=== PATIENT | male | born 1975 | race Caucasian/White ===

== ENCOUNTER 2021-10-08 08:18 | Emergency (ER) | payer BC, OTHER ==
[2021-10-08 08:32] VITALS: O2SAT 100
[2021-10-08 08:49] LABS: Absolute Neutrophil Ct (ANC) 7.73 x10^3/uL (1.4-6.9); Basophil (Absolute #) 0.07 x10^3/uL (0-0.4); Eosinophil % 3.7 % (0.00-5.0); Eosinophil (Absolute #) 0.43 x10^3/uL (0-0.5); Hematocrit 44.4 % (42-50); Hemoglobin 14.8 g/dL (12.5-18.0); Lymphocyte (Absolute #) 1.75 x10^3/uL (1.0-4.6); Lymphocytes % 15.2 % (24.0-44.0); Mean Cell Volume 93.9 fL (78-100); Mean Corpuscular Hemoglobin 31.3 pg (26-32); Mean Corpuscular Hgb Concent. 33.3 g/dL (32-36); Mean Platelet Volume 9.8 fL (7.5-11.0); Monocyte (Absolute #) 1.49 x10^3/uL (0.0-1.3); Neutrophil % 67.2 % (36.0-66.0); Platelet Count 240 x10^3/uL (150-450); Red Blood Count 4.73 x10^6/uL (4.1-5.6); Red Cell Distribution Width 14.7 % (11.5-14.0); White Blood Count 11.5 x10^3/uL (4.0-10.5)
[2021-10-08] MEDS ORDERED: TORAdol 30 mg Injection ONE (08:49)
--- NOTE | 2021-10-08 08:51 | ERPHSYRPT ---
- History of Present Illness Time Seen by Provider: 10/08/21 08:30 Source: patient Exam Limitations: no limitations Patient Subjective Stated Complaint: Pt states that in May he was diagnosed with sinusitis and his face was swollen on the right side and he was prescriped zpack and claritan and it went away and then on Monday he woke up with it swelling again and called his doctor and started a zpack and claritan and psuedaphede again but woke up this morning with it swollen twice as much and has pain Triage Nursing Assessment: Pt drove self to the ER, hypertvie, rates facial pain as 5/10, no relief taking aleve, denies sinus headache, denies nasal congestion, eyes and cheeks swollen, denies tooth pain Physician History: Patient is a 45-year-old male who has a history of right maxillary sinusitis which causes right facial swelling. His last episode before this was in May. He was treated with Z-Gaston and Zyrtec. He woke yesterday with swelling of the right side of the face called his doctor was put back on Z-Gaston and Zyrtec and Sudafed woke this morning with it swollen even more. It also is more painful today. He denies any dental pain. Timing/Duration: yesterday Quality: painful Severity: moderate Location: face Possible Causes: no cause identified Modifying Factors: Improves With: antihistamine, other (Z-Gaston) Associated Symptoms: edema, nasal congestion Allergies/Adverse Reactions: No Known Drug Allergies Allergy (Verified 10/08/21 08:32) Home Medications: Aspirin EC 81 mg [Ecotrin 81 mg] 81 mg PO DAILY 10/08/21 [History] Azithromycin 250 mg [Zithromax 250 MG TABLET] 250 mg PO ZPACK 10/08/21 [History] Lansoprazole [Prevacid] 15 mg PO DAILY 10/08/21 [History] Lisinopril/Hydrochlorothiazide [Lisinopril-Hctz 10-12.5 mg Tab] 1 each PO BID 10/08/21 [History] carvediloL [Carvedilol] 25 mg PO BID 10/08/21 [History] Travel Risk - International Travel Have you traveled outside of the country in past 3 weeks: No - Coronavirus Screening Are you exhibiting any of the following symptoms?: No - Vaccine Status Have you recieved a Covid-19 vaccination: Yes [employer]: Moderna - Vaccination Dates Date of 2cond Vaccination (if applicable): 10/2020 - Review of Systems Constitutional: No Fever, No Chills Eyes: No Symptoms Ears, Nose, & Throat: No Symptoms Respiratory: No Cough, No Dyspnea Cardiac: No Chest Pain, No Edema, No Syncope Abdominal/Gastrointestinal: No Abdominal Pain, No Nausea, No Vomiting, No Diarrhea Genitourinary Symptoms: No Dysuria Musculoskeletal: No Back Pain, No Neck Pain Skin: No Rash Neurological: No Dizziness, No Focal Weakness, No Sensory Changes Psychological: No Symptoms Endocrine: No Symptoms All Other Systems: Reviewed and Negative - Past Medical History Pertinent Past Medical History: Yes Cardiac History: Hypertension, Other - Past Surgical History Past Surgical History: Yes Cardiac: Cardiac Stent Musculoskeletal: Orthopedic Surgery - Social History Smoking Status: Current every day smoker Exposure to second hand smoke: Yes Drug Use: none Patient Lives Alone: Yes Significant Family History: heart disease - Nursing Vital Signs Nursing Vital Signs: Initial Vital Signs Temperature 97.6 F 10/08/21 08:22 Pulse Rate 74 10/08/21 08:22 Blood Pressure 150/97 10/08/21 08:22 O2 Sat by Pulse Oximetry 100 10/08/21 08:22 Pain Scale Pain Intensity 5 - Physical Exam General Appearance: no apparent distress, alert Eye Exam: PERRL/EOMI, eyes nml inspection Ears, Nose, Throat Exam: normal ENT inspection, pharynx normal, moist mucous membranes, other (Right side of the face is swollen in the maxillary area going through the nose and a little beyond tenderness over the right upper face) Neck Exam: normal inspection, non-tender, supple, full range of motion Respiratory Exam: normal breath sounds, lungs clear, No respiratory distress Cardiovascular Exam: regular rate/rhythm, normal heart sounds Gastrointestinal/Abdomen Exam: soft, mass, No tenderness Back Exam: normal inspection, normal range of motion, No CVA tenderness, No vertebral tenderness Extremity Exam: normal inspection, normal range of motion Neurologic Exam: alert, oriented x 3, cooperative, normal mood/affect, sensation nml, No motor deficits Skin Exam: normal color, warm, dry SpO2: 100 - Course Nursing assessment & vital signs reviewed: Yes - CT Exams Maxillofacial Bones CT Interpretation: Other (CT of the facial bones shows bilateral sinus disease) Ordered Tests: Active Orders 24 hr Category Date Time Status IV Insertion STAT Care 10/08/21 08:35 Active FACIAL BONES WO CONTRAST [CT] Stat Exams 10/08/21 09:31 Completed CBC W DIFF Stat Lab 10/08/21 08:49 Completed Lactic Acid Stat Lab 10/08/21 08:50 Completed Medication Summary Discontinued Medications Generic Name Dose Route Start Last Admin Trade Name [place] PRN Reason Stop Dose Admin Clindamycin HCl/Dextrose 900 mg in 50 mls @ 100 mls/hr 10/08/21 08:52 10/08/21 09:54 Clindamycin-D5w 900 Mg/50 Ml IV 10/08/21 09:21 Infused STAT STA Infusion Clindamycin HCl/Dextrose Confirm 10/08/21 08:56 Clindamycin-D5w 900 Mg/50 Ml Administered 10/08/21 08:57 Dose 900 mg in 50 mls @ ud IV .STK-MED ONE Ketorolac Tromethamine Confirm 10/08/21 08:49 Ketorolac Tromethamine 30 Mg/Ml Inj Administered 10/08/21 08:50 Dose 30 mg .ROUTE .STK-MED ONE Ketorolac Tromethamine 30 mg 10/08/21 08:55 10/08/21 08:56 Ketorolac Tromethamine 30 Mg/Ml Inj IV 10/08/21 08:56 30 mg STAT ONE Administration Lab/Rad Data: Laboratory Result Diagrams 10/08/21 08:49 Laboratory Results 10/08/21 10/08/21 Range/Units 08:50 08:49 WBC 11.5 H (4.0-10.5) x10^3/uL RBC 4.73 (4.1-5.6) x10^6/uL Hgb 14.8 (12.5-18.0) g/dL Hct 44.4 (42-50) % MCV 93.9 (78-100) fL MCH 31.3 (26-32) pg MCHC 33.3 (32-36) g/dL RDW 14.7 H (11.5-14.0) % Plt Count 240 (150-450) x10^3/uL MPV 9.8 (7.5-11.0) fL Gran % 67.2 H (36.0-66.0) % Immature Gran % (Auto) 0.3 (0.00-0.4) % Nucleat RBC Rel Count 0.0 (0.00-0.1) % Eos # (Auto) 0.43 (0-0.5) x10^3/uL Immature Gran # (Auto) 0.03 (0.00-0.03) x10^3u/L Absolute Lymphs (auto) 1.75 (1.0-4.6) x10^3/uL Absolute Monos (auto) 1.49 H (0.0-1.3) x10^3/uL Absolute Nucleated RBC 0.00 (0.00-0.01) x10^3u/L Lymphocytes % 15.2 L (24.0-44.0) % Monocytes % 13.0 H (0.0-12.0) % Eosinophils % 3.7 (0.00-5.0) % Basophils % 0.6 (0.0-0.4) % Absolute Granulocytes 7.73 H (1.4-6.9) x10^3/uL Basophils # 0.07 (0-0.4) x10^3/uL Lactic Acid 0.7 (0.4-2.0) - Progress Progress: improved - Departure Departure Disposition: Home Clinical Impression: Sinusitis Condition: Stable Critical Care Time: No Referrals: RISHABH SEVILLA [Primary Care Provider] - Follow up/PCP as directed Instructions: Sinusitis, Adult (DC) Prescriptions: Hydrocodone/Acetaminophen [Hydrocodone-Acetamin 5-325 mg] 1 tab PO Q6HPRN PRN 3 Days #12 tablet MDD 4 PRN Reason: Pain clindamycin HCL [Cleocin HCl] 300 mg PO TID 10 Days #30 cap
[2021-10-08] MEDS ORDERED: CLINDAMYCIN-D5W 900 MG/50 ML*** 900 MG/50 ML BAG IV STA (08:52)
[2021-10-08] MEDS ORDERED: TORAdol 30 mg Injection IV ONE (08:55)
[2021-10-08] MEDS ORDERED: CLINDAMYCIN-D5W 900 MG/50 ML*** 900 MG/50 ML BAG IV ONE (08:56)
--- NOTE | 2021-10-08 09:54 | XRAY ---
Indication: Facial swelling. No known injury. Multiple contiguous axial images obtained through the facial bones. Sagittal and coronal reformatted images obtained. Comparison: None Old left nasal bone fracture. No acute fracture, suspicious bony lesions, or radiopaque foreign body. Orbits including roof, padilla, and floors are intact. Both maxillary sinuses demonstrate moderate mucosal thickening without fluid leveling. Minimal mucosal thickening both ethmoid sinuses. Nasal passages clear. Mild nasal septal deviation to the left. Visualized cervical spine normal. Scattered centimeter/subcentimeter cervical nodes bilaterally presumed reactive. Mild bilateral carotid calcifications. Remaining visualized noncontrasted soft tissues including base of brain are unremarkable. Impression: 1. Paranasal sinus disease, old nasal bone fracture, and nasal septal deviation. 2. Remaining CT facial bones negative.
[2021-10-08 10:26] VITALS: BP 151/109; PULSE 72
== END 2021-10-08 10:26 | disposition home or self-care (01) ==
LOC: ED 08:18
DX: J32.8 Other chronic sinusitis (principal); R60.0 Localized edema; R09.81 Nasal congestion; I10 Essential (primary) hypertension; Z72.0 Tobacco use; Z79.899 Other long term (current) drug therapy; Z79.891 Long term (current) use of opiate analgesic
CPT/HCPCS: 36000; 36415; 70486; 83605; 85025; 96365; 96374; 99284; J1885